=== PATIENT | male | born 1995 ===

== ENCOUNTER 2023-03-08 08:14 | Outpatient (CLI) | payer MEDICARE, MEDICAID, SELFPAY | END 2023-03-08 08:15 | disposition home or self-care (01) | LOC: ANHBWCAUD 08:15 | PROVIDERS: PCP Family Medicine; Visit Provider Family Medicine | DX: H90.3 Sensorineural hearing loss, bilateral (principal) | CPT/HCPCS: 92557; 92567 ==

== ENCOUNTER 2024-03-20 08:37 | Outpatient (CLI) | payer MEDICARE, MEDICAID, SELFPAY ==
--- OUTSIDE RECORDS SUMMARY | 2024-03-20 08:45 | XMS_ITS | Clinical Summary ---
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 Indications: Seizure Active levETIRAcetam (KEPPRA) 500 MG TabletIndications :Seizure Take 500 mg by mouth 2 times daily. Indications: Seizure Active sertraline (ZOLOFT) 50 MG TabletIndications :Generalized Anxiety Disorder,Major Depressive Disorder Take 50 mg by mouth daily. Indications: Generalized Anxiety Disorder, Major Depressive Disorder Active Melatonin 10 MG TabletIndications :Insomnia Take 10 mg by mouth nightly. Indications: Trouble Sleeping Active acetaminophen (TYLENOL) 325 MG Tablet Take 650 mg by mouth every 4 hours as needed (pain or fever). Active magnesium hydroxide (Milk of Magnesia) 400 MG/5ML Suspension Take 30 mL by mouth daily as needed (if 3 days with no bowel movement.). Active Neomycin-Bacitrac in-Polymyxin (triple antibiotic) 5-400-5000 Ointment Apply every 8 hours as needed. Apply topically to minor wounds/skin irritation Active dextromethorphan- guaiFENesin (ROBITUSSIN-DM) 10-100 MG/5ML Liquid Take 10 mL by mouth every 4 hours as needed for Cough. Active Simethicone 500 MG Capsule Take 500 mg by mouth daily as needed for Other (gas/indigestion) . Active Midazolam (Nayzilam) 5 MG/0.1ML SolutionIndicatio ns:Seizure disorder (HCC) 0.1 mL by Nasal route as needed for Other (For prolonged seizure). 2 Each 3 02/21/19 24 Active amphetamine-dextr oamphetamine (Adderall XR) 20 MG CAPSULE SR 24 HRIndications:Att ention Deficit Hyperactivity Disorder Take 2 Capsules by mouth daily. Indications: Attention Deficit Hyperactivity Disorder 60 Capsule 07/24/19 24 Active Active Problems Problem Noted Date Diagnosed Date Onychomycosis of toenail Seizure disorder Insomnia ADD (attention deficit disorder) Anxiety Autism Depression Mild intellectual disability Sensorineural hearing loss (SNHL) of both ears Encounters Date Type Department Care Team Description 02/27/2024 Nursing Facility [facility] Neurology [facility]3] [address] [place] [address] Eduardo Rogers MD Seizure disorder (HCC) (Primary Dx); Autism from Last 3 Months Social History Tobacco Use Types Packs/Day Years Used Date Smoking Tobacco: Never Smokeless Tobacco: Never Tobacco Cessation:Counseling Given: Not Answered Alcohol Use Standard Drinks/Week Comments Never 0 (1 standard drink = 0.6 oz pur e alcohol) Sexually Active Control Partners Comments Never Sex and Gender Information Value Date Recorded Sex Assigned at Not on file Legal Sex Male 10:57 AM CDT Gender Identity Not on file Sexual Orientation Not on file Last Filed Vital Signs Vital Sign Reading Time Taken Comments Blood Pressure 117/76 02/27/2024 11:14 AM REQUISITION APPROVER Pulse 113 02/27/2024 11:14 AM REQUISITION APPROVER Temperature 36.6 ??C (97.8 ??F) 02/27/2024 11:[address] Respiratory Rate 19 02/27/2024 11:14 AM REQUISITION APPROVER Oxygen Saturation 99% 02/27/2024 11:14 AM REQUISITION APPROVER Inhaled Oxygen Concentration - - Weight 61.5 kg (135 lb 9.6 oz) 02/27/2024 11:14 AM REQUISITION APPROVER Height 167.6 cm (5' 6 ) 02/27/2024 11:14 AM REQUISITION APPROVER Body Mass Index 21.89 02/27/2024 11:14 AM REQUISITION APPROVER Plan of Treatment Health Maintenance Due Date Last Done Comments Hepatitis C Virus (HCV) Screening 1993 TdaP Immunization 1993 Hepatitis B Immunization (1 of 3 - 19+ 3-dose series) 2012 Influenza Immunization (#1) 2023 SARS-COV-2 Immunization (2023- season) 2023 Respiratory Syncytial Virus (RSV) Immunization (Adult) (1 - 1-dose 75+ series) 2068 Meningococcal Immunization (ACWY) Aged Out No longer eligible based on patient's age to complete this topic Pneumococcal Immunization Combined Aged Out No longer eligible based on patient's age to complete this topic Rotavirus Immunization Aged Out No lo nger eligible based on patient's age to complete this topic Insurance MEDICARE C [employer] [place] [id number] [place]ICAID [place] Care Teams P[employer] B[employer] Machine Tender Relationship Specialty Start Date End Date Inés Cerna MD [address] [place] [address] PCP - General Family Medicine 01/30/23
== END 2024-03-20 08:38 | disposition home or self-care (01) ==
LOC: ANHBWCAUD 08:37
PROVIDERS: PCP Family Medicine; Visit Provider Family Medicine
DX: H90.3 Sensorineural hearing loss, bilateral (principal)
CPT/HCPCS: 92557; 92567